=== PATIENT | female | born 1980 | race Caucasian/White ===

== ENCOUNTER 2017-11-11 08:42 | Inpatient (IN) | payer OTHER ==
[~2017-11-11] VITALS: Ht 167.6 cm; Wt 93.0 kg
[2017-11-11] MEDS ORDERED: LR 1,000 ML IV SCH (09:55)
[2017-11-11] MEDS ORDERED: OXYTOCIN/NORMAL SALINE 1,000 ML IV SCH ×2 (09:55→16:44)
[2017-11-11 10:56] LABS: BASOPHILS % (AUTO) 0.3 % (0.0-2.0); EOSINOPHILS % (AUTO) 0.4 % (0.0-4.0); HEMATOCRIT 35.1 % (36-48); HEMOGLOBIN 11.2 g/dL (12.0-16.0); LYMPHOCYTES # (AUTO) 1.5 K/uL (1.0-5.5); MEAN CORPUSCULAR HEMOGLOBIN 24 pg (27-31); MEAN CORPUSCULAR HGB CONC 32 % (32-36); MEAN CORPUSCULAR VOLUME 76 fL (79.0-98.0); MONOCYTES # (AUTO) 0.6 K/uL (0.0-1.0); NEUTROPHILS # (AUTO) 8.9 K/uL (1.8-7.7); NEUTROPHILS % (AUTO) 80.3 % (40.0-70.0); PLATELET COUNT (AUTO) 280 K/uL (130-430); RED BLOOD CELL COUNT(AUTO) 4.65 MIL/uL (4.2-6.2); RED CELL DISTRIBUTION WIDTH 13.3 % (9.0-15.0)
[2017-11-11 12:41] VITALS: BP_SYST 111
[2017-11-11] MEDS ORDERED: fentaNYL CITRATE/PF 100 MCG/2 ML AMP ONE (12:43)
[2017-11-11] MEDS ORDERED: DIPHENHYDRAMINE INJ 50 MG/ML VIAL IVP PRN (13:00)
[2017-11-11] MEDS ORDERED: NALBUPHINE HCL 10 MG/ML AMP IVP PRN (13:00)
[2017-11-11] MEDS ORDERED: ONDANSETRON HCL 4 MG/2 ML VIAL IVP PRN (13:00)
[2017-11-11] MEDS ORDERED: NALOXONE HCL 0.4 MG/ML AMP (NARCAN) IVP PRN (13:00)
[2017-11-11] MEDS ORDERED: fentaNYL CITRATE/PF 100 MCG/2 ML AMP EP ONE (13:00)
[2017-11-11] MEDS ORDERED: OXYTOCIN/NORMAL SALINE 1,000 ML IV ONE (16:44)
[2017-11-11] MEDS ORDERED: MEASLES,MUMPS&RUBELLA VACC/PF 12500 UNIT/0.5 ML VIAL SUBQ PRN (16:45)
[2017-11-11] MEDS ORDERED: ANUSOL 1 EA SUPP.RECT (PREPARATION H) RC PRN (16:45)
[2017-11-11] MEDS ORDERED: RHO(D) IMMUNE GLOBULIN/MALTOSE 1500 UNITS/1.3 ML (WINHRO) IM PRN (16:45)
[2017-11-11] MEDS ORDERED: METHYLERGONOVINE MALEATE 0.2 MG TABLET PO PRN (16:45)
[2017-11-11] MEDS ORDERED: GLYCERIN/WITCH HAZEL (TUCKS PADS) TP PRN (16:45)
[2017-11-11] MEDS ORDERED: HYDROCORTISONE 0.5%, 28.35 GM TOPICAL CREAM TP PRN (16:45)
[2017-11-11] MEDS ORDERED: SENNOSIDES/DOCUSATE SODIUM 1 TAB TABLET(SENOKOT-S) PO PRN (16:45)
[2017-11-11] MEDS ORDERED: OXYCODONE/ACETAMINOPHEN 5-325 TABLET PO PRN (16:45)
[2017-11-11] MEDS ORDERED: DERMOPLAST SPRAY TP PRN (16:45)
[2017-11-11] MEDS ORDERED: LANOLIN 7 GM OINT. TP PRN (16:45)
[2017-11-11] MEDS: IBUPROFEN 600 MG TABLET PO SCH ×2 (18:21→23:37)
[2017-11-11] MEDS: OXYCODONE/ACETAMINOPHEN 5-325 TABLET PO PRN (19:21)
[2017-11-11] MEDS: DOCUSATE SODIUM 100 MG CAPSULE PO PRN (19:22)
[2017-11-11] MEDS ORDERED: TEMAZEPAM 15 MG CAPSULE PO PRN (21:00)
[2017-11-12] MEDS: IBUPROFEN 600 MG TABLET PO SCH ×2 (06:14→13:07)
[2017-11-12 08:03] LABS: BASOPHILS % (AUTO) 0.1 % (0.0-2.0); MEAN CORPUSCULAR HEMOGLOBIN 24 pg (27-31); NEUTROPHILS # (AUTO) 9.8 K/uL (1.8-7.7)
[2017-11-12 08:17] LABS: EOSINOPHILS % (AUTO) 0.4 % (0.0-4.0); HEMATOCRIT 32.2 % (36-48); HEMOGLOBIN 10.3 g/dL (12.0-16.0); LYMPHOCYTES # (AUTO) 1.6 K/uL (1.0-5.5); LYMPHOCYTES % (AUTO) 13.1 % (20.5-51.5); MEAN CORPUSCULAR HGB CONC 32 % (32-36); MEAN CORPUSCULAR VOLUME 75 fL (79.0-98.0); MONOCYTES # (AUTO) 0.7 K/uL (0.0-1.0); MONOCYTES % (AUTO) 5.4 % (1.7-9.3); PLATELET COUNT (AUTO) 236 K/uL (130-430); RED BLOOD CELL COUNT(AUTO) 4.31 MIL/uL (4.2-6.2); RED CELL DISTRIBUTION WIDTH 13.3 % (9.0-15.0); WHITE BLOOD COUNT (AUTO) 12.1 K/uL (4.8-10.8)
[2017-11-12] MEDS: DOCUSATE SODIUM 100 MG CAPSULE PO PRN (10:01)
[2017-11-12] MEDS: OXYCODONE/ACETAMINOPHEN 5-325 TABLET PO PRN (10:01)
[2017-11-12] MEDS ORDERED: MINERAL OIL 30 ML UDC PO ONE (16:59)
[2017-11-12] MEDS ORDERED: ROPIVACAINE 0.2% (NAROPIN) PF SOLUTION 100 ML BOTTLE EP ONE (16:59)
== END 2017-11-12 17:50 | disposition home or self-care (01) | DRG 775 ==
LOC: SPU 08:50
PROVIDERS: ADMIT Obstetrics & Gynecology; ATTEND Obstetrics & Gynecology
PROC: 10E0XZZ Delivery of Products of Conception, External Approach (ICD-10-PCS; principal; 2017-11-11)
PROC: 0KQM0ZZ Repair Perineum Muscle, Open Approach (ICD-10-PCS; 2017-11-11)
PROC: 10907ZC Drainage of Amniotic Fluid, Therapeutic from Products of Conception, Via Natural or Artificial Opening (ICD-10-PCS; 2017-11-11)
PROC: 3E033VJ Introduction of Other Hormone into Peripheral Vein, Percutaneous Approach (ICD-10-PCS; 2017-11-11)
PROC: 3E0R3BZ Introduction of Anesthetic Agent into Spinal Canal, Percutaneous Approach (ICD-10-PCS; 2017-11-11)
PROC: 00HU33Z Insertion of Infusion Device into Spinal Canal, Percutaneous Approach (ICD-10-PCS; 2017-11-11)
PROC: 3E0134Z Introduction of Serum, Toxoid and Vaccine into Subcutaneous Tissue, Percutaneous Approach (ICD-10-PCS; 2017-11-11)
DX: O41.03X0 Oligohydramnios, third trimester, not applicable or unspecified (principal); K21.9 Gastro-esophageal reflux disease without esophagitis; I95.2 Hypotension due to drugs; O42.92 Full-term premature rupture of membranes, unspecified as to length of time between rupture and onset of labor; O36.8130 Decreased fetal movements, third trimester, not applicable or unspecified; O76 Abnormality in fetal heart rate and rhythm complicating labor and delivery; O69.81X0 Labor and delivery complicated by cord around neck, without compression, not applicable or unspecified; O70.1 Second degree perineal laceration during delivery; Z3A.39 39 weeks gestation of pregnancy; Z37.0 Single live birth; T41.3X5A Adverse effect of local anesthetics, initial encounter; Y92.238 Other place in hospital as the place of occurrence of the external cause; O99.62 Diseases of the digestive system complicating childbirth; Z23 Encounter for immunization
CPT/HCPCS: 36415; 81002-TC; 85025; 86592; 86886; 86900; 86901; 94760; J2795; J3010

== ENCOUNTER 2024-03-09 19:29 | Inpatient (IN) | payer BC ==
[~2024-03-09] VITALS: Ht 167.6 cm; Wt 86.2 kg
[2024-03-09 19:37] VITALS: BP_SYST 127; PULSE 103; RESP 20; TEMP 97.8; O2SAT 98
[2024-03-09] MEDS: ONDANSETRON HCL 4 MG/2 ML VIAL IVP ONE (20:04)
[2024-03-09] MEDS: PANTOPRAZOLE SODIUM 40 MG/VIAL (PROTONIX) IVP ONE (20:04)
[2024-03-09 20:30] LABS: BILIRUBIN,URINE NEGATIVE (NEGATIVE); BLOOD, URINE NEGATIVE (NEGATIVE); CLARITY/URINE CLOUDY (CLEAR); COLOR,URINE YELLOW (YELLOW); GLUCOSE,URINE NEGATIVE (NEGATIVE); KETONES,URINE 3+ (NEGATIVE); LEUKOCYTE ESTERASE ,URINE 1+ (NEGATIVE); NITRITE, URINE NEGATIVE (NEGATIVE); PH,URINE 8.5 (5.0-8.0); PROTEIN URINE TRACE (NEGATIVE); UROBILINOGEN,URINE 0.2 (0.2-1.0)
[2024-03-09 20:37] LABS: BACTERIA,URINE FEW /HPF (None Seen); RBC,URINE 0-3 /HPF (0-3)
[2024-03-09 20:38] LABS: URINE AMORPHOUS PHOSPHATES 1+ /HPF (None Seen)
[2024-03-09] MEDS: NACL 0.9% 1,000 ML IV ONE (20:40)
[2024-03-09] MEDS: KETOROLAC TROMETHAMINE 30 MG VIAL IVP ONE (20:40)
[2024-03-09 21:03] LABS: BASOPHILS # (AUTO) 0.1 K/uL (0.0-0.2); BASOPHILS % (AUTO) 0.6 % (0.0-2.0); EOSINOPHILS % (AUTO) 0.2 % (0.0-4.0); HEMATOCRIT 42.8 % (36-48); LYMPHOCYTES # (AUTO) 1.4 K/uL (1.0-5.5); MEAN CORPUSCULAR HEMOGLOBIN 26 pg (27-31); MEAN CORPUSCULAR HGB CONC 33 % (32-36); MEAN CORPUSCULAR VOLUME 78 fL (79.0-98.0); MONOCYTES # (AUTO) 0.8 K/uL (0.0-1.0); MONOCYTES % (AUTO) 5.2 % (1.7-9.3); NEUTROPHILS # (AUTO) 13.6 K/uL (1.8-7.7); PLATELET COUNT (AUTO) 273 K/uL (130-430); RED CELL DISTRIBUTION WIDTH 13.4 % (9.0-15.0)
[2024-03-09 21:13] LABS: SERUM HCG (QUALITATIVE) NEGATIVE (NEGATIVE)
[2024-03-09] MEDS ORDERED: ONDANSETRON HCL 4 MG/2 ML VIAL IVP PRN (21:45)
[2024-03-09] MEDS ORDERED: MORPHINE 2 MG/ML INJ. SYRINGE IVP PRN (21:45)
[2024-03-09 21:48] LABS: ALBUMIN 3.9 g/dL (3.4-4.8); BILIRUBIN,DIRECT 0.2 mg/dL (0.0-0.3); CREATININE 1.02 mg/dL (0.55-1.30); TOTAL BILIRUBIN 0.8 mg/dL (0.0-1.0); TOTAL PROTEIN, SERUM 7.7 g/dL (6.4-8.3)
[2024-03-09] MEDS ORDERED: cefTRIAXone 2 GM VIAL ONE (21:52)
[2024-03-09] MEDS: NACL 0.9% 1,000 ML IV SCH (23:38)
[2024-03-09] MEDS: ACETAMINOPHEN 325 MG TABLET PO PRN (23:38)
[2024-03-10] VITALS: BP_SYST 126; PULSE 68; RESP 18; TEMP 97.7; O2SAT 96
[2024-03-10 04:00] VITALS: BP_SYST 116; PULSE 79; RESP 18; TEMP 97.6; O2SAT 97
[2024-03-10 07:51] LABS: BASOPHILS % (AUTO) 0.3 % (0.0-2.0); EOSINOPHILS # (AUTO) 0.1 K/uL (0.0-0.4); EOSINOPHILS % (AUTO) 0.5 % (0.0-4.0); HEMATOCRIT 39.1 % (36-48); HEMOGLOBIN 12.8 g/dL (12.0-16.0); LYMPHOCYTES # (AUTO) 1.7 K/uL (1.0-5.5); MEAN CORPUSCULAR HEMOGLOBIN 26 pg (27-31); MEAN CORPUSCULAR HGB CONC 33 % (32-36); MEAN CORPUSCULAR VOLUME 80 fL (79.0-98.0); MONOCYTES # (AUTO) 0.7 K/uL (0.0-1.0); MONOCYTES % (AUTO) 6.6 % (1.7-9.3); NEUTROPHILS # (AUTO) 8.3 K/uL (1.8-7.7); NEUTROPHILS % (AUTO) 76.6 % (40.0-70.0); PLATELET COUNT (AUTO) 236 K/uL (130-430); RED BLOOD CELL COUNT(AUTO) 4.89 MIL/uL (4.2-6.2); RED CELL DISTRIBUTION WIDTH 13.7 % (9.0-15.0); WHITE BLOOD COUNT (AUTO) 10.8 K/uL (4.8-10.8)
[2024-03-10 08:00] VITALS: BP_SYST 122; PULSE 80; RESP 16; TEMP 98.8; O2SAT 0; O2SAT 95
[2024-03-10 08:07] LABS: CALCIUM 7.8 mg/dL (8.4-11.0); CREATININE 0.79 mg/dL (0.55-1.30); POTASSIUM 3.7 mmol/L (3.5-5.1)
[2024-03-10 11:04] VITALS: BP_SYST 118; PULSE 79; RESP 16; TEMP 98.2; O2SAT 98
[2024-03-10] MEDS: EXCEDRIN EXTRA STRENGTH PO PRN (13:16)
[2024-03-10 16:06] VITALS: BP_SYST 116; PULSE 78; RESP 16; TEMP 97.9; O2SAT 98
[2024-03-10 20:00] VITALS: BP_SYST 125; PULSE 74; RESP 18; TEMP 98.1; O2SAT 97
[2024-03-10] MEDS: ZOLPIDEM TARTRATE 5 MG TABLET PO PRN (21:18)
[2024-03-11] VITALS: BP_SYST 119; PULSE 80; RESP 18; TEMP 98.1; O2SAT 98
[2024-03-11 04:00] VITALS: BP_SYST 119; PULSE 78; RESP 18; TEMP 98.1; O2SAT 98
[2024-03-11 06:30] LABS: BASOPHILS % (AUTO) 0.5 % (0.0-2.0); EOSINOPHILS # (AUTO) 0.1 K/uL (0.0-0.4); EOSINOPHILS % (AUTO) 1.9 % (0.0-4.0); HEMATOCRIT 36.4 % (36-48); HEMOGLOBIN 12.1 g/dL (12.0-16.0); LYMPHOCYTES # (AUTO) 2.3 K/uL (1.0-5.5); LYMPHOCYTES % (AUTO) 33.7 % (20.5-51.5); MEAN CORPUSCULAR HEMOGLOBIN 26 pg (27-31); MEAN CORPUSCULAR HGB CONC 33 % (32-36); MEAN CORPUSCULAR VOLUME 80 fL (79.0-98.0); MONOCYTES # (AUTO) 0.5 K/uL (0.0-1.0); MONOCYTES % (AUTO) 7.7 % (1.7-9.3); NEUTROPHILS # (AUTO) 3.8 K/uL (1.8-7.7); NEUTROPHILS % (AUTO) 56.2 % (40.0-70.0); PLATELET COUNT (AUTO) 226 K/uL (130-430); RED BLOOD CELL COUNT(AUTO) 4.58 MIL/uL (4.2-6.2); RED CELL DISTRIBUTION WIDTH 13.5 % (9.0-15.0); WHITE BLOOD COUNT (AUTO) 6.8 K/uL (4.8-10.8)
[2024-03-11 06:54] LABS: CALCIUM 7.9 mg/dL (8.4-11.0); CREATININE 0.7 mg/dL (0.55-1.30); POTASSIUM 3.4 mmol/L (3.5-5.1)
[2024-03-11 08:00] VITALS: O2SAT 97
[2024-03-11] MEDS: PANTOPRAZOLE SODIUM 40 MG/VIAL (PROTONIX) IVP SCH (09:22)
[2024-03-11 11:22] VITALS: BP_SYST 137; PULSE 80; RESP 16; TEMP 97.1; O2SAT 98
[2024-03-11] MEDS ORDERED: LEVO750T64 PO (13:17)
[2024-03-11 13:21] VITALS: BP_SYST 132; PULSE 73; RESP 16; TEMP 97.3; O2SAT 99
== END 2024-03-11 13:55 | disposition home or self-care (01) | DRG 872 ==
LOC: SED 19:29 → SMU 21:43
PROVIDERS: ADMIT Internal Medicine; ATTEND Internal Medicine
DX: A41.9 Sepsis, unspecified organism (principal); N12 Tubulo-interstitial nephritis, not specified as acute or chronic; K21.9 Gastro-esophageal reflux disease without esophagitis; Z90.49 Acquired absence of other specified parts of digestive tract; Z79.899 Other long term (current) drug therapy
CPT/HCPCS: 36415; 71045; 76700; 76770; 80048; 80076; 81000; 81001; 81015; 83605; 83690; 84703; 85025; 87040; 87086; 96361; 96365; 96375; 99285; C9113; J0696; J1885; J2405; J7060